=== PATIENT | female | born 1955 | race Caucasian/White ===

== ENCOUNTER 2016-11-28 05:55 | Day surgery (SDC) | payer MEDICAID ==
--- NOTE | 2016-11-27 15:01 | GHP ---
DATE OF ADMISSION: 11/28/2016 PREOPERATIVE DIAGNOSIS: Right shoulder impingement with partial thickness rotator cuff tear. HISTORY OF PRESENT ILLNESS: The patient is a 61-year-old white female who works for [employer] who has had ongoing right shoulder problems and has failed multiple attempts at conservative manage ment including physical therapy and injections. She continues to have difficulty with certain motio ns and night pain, and decision was made to proceed with a decompression and possible cuff repair. PAST MEDICAL HISTORY: Osteopenia. PAST SURGICAL HISTORY: Excision of a uterine fibroid. MEDICATIONS: She does a ProAir inhaler, vitamin C, vitamin D, glucosamine. ALLERGIES: Claritin. SOCIAL HISTORY: Works tube [employer]. Occasional cigarettes, occasional alcohol. REVIEW OF SYSTEMS: No shortness of breath. No chest pain. Otherwise, review of systems is unremar kable. PHYSICAL EXAM: GENERAL: A healthy-appearing 61-year-old female. She is 5 feet 8 inches tall, weig hs 130 pounds. Alert and oriented x3. HEENT: Normocephalic, atraumatic. Extraocular muscles inta ct. NECK: Supple. There is no lymphadenopathy. No JVD. CHEST: Clear to auscultation. CARDIOVA SCULAR: Regular rate and rhythm. ABDOMEN: Soft, nontender, nondistended. RIGHT SHOULDER: There is no obvious deformity. A little bit of elevation at the AC joint with mild tenderness to palpatio n there. Active range of motion of the right shoulder. She has full extension, 170 degrees of forw rosey flexion, 80 degrees of external rotation, internal rotation she can get her thumb to L1. Rotato r cuff strength: Supraspinatus is 4/5 limited more by pain than actual weakness. Infraspinatus 4+ out of 5, subscapularis 4+ out of 5. She does have a positive impingement sign. Mildly positive cr oss-body adduction sign. IMAGING: MRI is reviewed. It shows a partial-thickness tear of the supraspinatus involving less th an 25% of the thickness of the tendon. Glenohumeral articular cartilage is in good shape. There is some mild to moderate AC joint arthritis. Biceps tendon lies normally in the groove. ASSESSMENT: Right shoulder impingement with partial thickness tear. PLAN: Long discussion with the patient. She has really failed to improve with conservative managem ent and is quite limited by the shoulder at this point. I recommend proceeding with an arthroscopic subacromial decompression, distal clavicle excision, possible cuff repair if the tear involves more than 50% of the tendon. Risks and benefits of the surgery including the possibility of being in a shoulder sling and abduction pillow for 3-6 weeks postoperatively were explained to her. She unders tands these risks as well as potential for infection or blood clots. We will proceed with surgery M onday at [facility]. Preoperative paperwork was completed. /[id number]/MODL
[2016-11-28] MEDS ORDERED: LIDOCAINE 1% 5 ML SDV ID PRN (06:24)
[2016-11-28] MEDS ORDERED: LR 1,000 ML IV ONE (06:24)
[2016-11-28] MEDS ORDERED: ceFAZolin 2 GM in D5W 100 ML IV ONE (06:30)
[2016-11-28] MEDS ORDERED: ceFAZolin 2 GM/DEXTROSE 100 ML IV ONE (06:30)
[2016-11-28] MEDS ORDERED: EPINEPHrine 30 MG/30 ML MDV ONE (06:49)
[2016-11-28] MEDS ORDERED: BUPIVACAINE/EPI 0.5% 30 ML SDV ONE (06:49)
[2016-11-28] MEDS ORDERED: LIDO/EPI 1% **for epidural** 30 ML SDV ONE (06:51)
[2016-11-28] MEDS ORDERED: LIDOCAINE 2% 100 MG/5 ML SYR IVP ONE (07:09)
[2016-11-28] MEDS ORDERED: fentaNYL 250 MCG/5 ML INJ ONE (07:10)
[2016-11-28] MEDS ORDERED: PROPOFOL/EMULSION 500 MG/50 ML BOTTLE IV ONE (07:10)
[2016-11-28] MEDS ORDERED: MIDAZOLAM 2 MG/2 ML VIAL ONE (07:13)
[2016-11-28] MEDS ORDERED: fentaNYL 100 MCG/2 ML INJ ONE ×3 (08:49→09:18)
[2016-11-28] MEDS ORDERED: HYDROmorphONE/DILAUDID 1 MG/ML SYR ONE (09:24)
[2016-11-28] MEDS ORDERED: KETOROLAC 30 MG/1 ML SDV ONE (09:24)
[2016-11-28] MEDS ORDERED: HYDROCODONE/APAP 10/325 TAB PO PRN (10:09)
[2016-11-28] MEDS ORDERED: HYDROCODONE/APAP 10/325 TAB ONE ×2 (10:32→15:49)
--- NOTE | 2016-11-28 12:04 | GOP ---
DATE OF OPERATION: SURGEON: Yoel iKm MD ANESTHESIA: General. ANESTHESIOLOGIST: Dr. Shukla PREOPERATIVE DIAGNOSIS: Right shoulder impingement. POSTOPERATIVE DIAGNOSIS: Right shoulder impingement. PROCEDURE PERFORMED: 1. Arthroscopic labral debridement. 2. Glenohumeral chondroplasty. 3. Subacromial decompression. 4. Distal clavicle excision. FINDINGS: ESTIMATED BLOOD LOSS: Minimal. INDICATIONS: The patient is a 61-year-old female with long-standing right shoulder pain that has fa iled multiple attempts at conservative management including injections and physical therapy. Decisi on was made to proceed with a subacromial decompression. DESCRIPTION OF PROCEDURE: After appropriate informed consent was obtained, the patient was taken to the operating room and placed supine on the operating table. Time-out was performed. Patient was identified. Correct site was identified. She received 2 g of Ancef preoperatively. Following beau ction of general endotracheal tube anesthesia by Dr. Shukla, she was positioned in the beach-chair position with all bony prominences well padded. Right upper extremity was prepped and draped in th e usual sterile fashion. I instilled 30 mL of normal saline and 30 mL of 1% lidocaine with epinephr ine. Through the standard posterior portal, I made a small martine incision, introduced the camera thr ough the standard portal and then obtained a standard anterior portal under direct visualization. S he had extensive degenerative fraying and tearing of the labrum both superiorly and anteriorly. Thi s was debrided back with a motorized shaver. There were some grade 2 changes in the central and ant erior aspect of the glenoid that I performed a gentle chondroplasty as well. Looking at the undersu rface of the rotator cuff, there was some mild fraying, but it was intact. Biceps tendon was also i ntact as was the anchor. I repositioned the camera in the subacromial space. There was extensive s ynovitis and bursitis there. I debrided this with both electrocautery and the motorized shaver. As she had a type 2 acromion, using a motorized bur, I removed the anterior third of the acromion and performed a decompression working through the anterior portal. Then I moved superiorly, and I remov ed the distal end of the clavicle. There were moderate AC arthritic changes there. Instruments wer e then withdrawn. Portal incisions were closed with 3-0 nylon. I instilled 20 mL of 5% Marcaine wi th epinephrine into the shoulder. Sterile dressing was applied, and sling was applied. The patient was awakened from anesthesia, taken to recovery room in satisfactory condition. There were no imme diate intraoperative complications. COMPLICATIONS: None. DRAINS: None. /[id number]/MODL
== END 2016-11-28 16:15 | disposition home or self-care (01) ==
LOC: FSGY 05:55
PROVIDERS: ATTEND Orthopaedic Surgery
PROC: 0RBJ4ZZ Excision of Right Shoulder Joint, Percutaneous Endoscopic Approach (ICD-10-PCS; principal; 2016-11-28 07:17)
DX: M25.811 Other specified joint disorders, right shoulder (principal); G89.29 Other chronic pain; Z72.0 Tobacco use
CPT/HCPCS: J0690; J1170; J1885; J2001; J2250; J2704; J3010

== ENCOUNTER → 2017-03-23 | Outpatient (CLI) | payer MEDICAID | LOC: FIMAGING 13:42 | PROVIDERS: ATTEND Internal Medicine | DX: Z12.31 Encounter for screening mammogram for malignant neoplasm of breast (principal); Z80.3 Family history of malignant neoplasm of breast | CPT/HCPCS: G0202 ==

== ENCOUNTER → 2017-08-31 | Outpatient (CLI) | payer MEDICAID ==
[~2017-08-31] MED LIST: IOPAMIDOL (ISOVUE-300) 100 ML BTL ONE
== END ==
LOC: FIMAGING 14:22
PROVIDERS: ATTEND Internal Medicine Gastroenterology
DX: R63.4 Abnormal weight loss (principal); K59.00 Constipation, unspecified; I86.2 Pelvic varices; L05.91 Pilonidal cyst without abscess
CPT/HCPCS: Q9967

== ENCOUNTER → 2017-09-22 | Outpatient (CLI) | payer MEDICAID | LOC: CIMAGING 15:16 | PROVIDERS: ATTEND Obstetrics & Gynecology | DX: N94.89 Other specified conditions associated with female genital organs and menstrual cycle (principal); D25.9 Leiomyoma of uterus, unspecified | CPT/HCPCS: 76856-PO ==

== ENCOUNTER 2018-02-09 16:01 | Emergency (ER) | payer MEDICAID ==
[2018-02-09] MEDS ORDERED: IBUPROFEN 600 MG TAB PO ONE (16:33)
--- NOTE | 2018-02-09 16:37 | EDPHY ---
H & P Smoking Status: Current some day smoker Time Seen by Provider: 02/09/18 16:32 HPI/ROS: CHIEF COMPLAINT: Left foot pain HISTORY OF PRESENT ILLNESS: 62-year-old female presents to the emergency department with pain in her left foot. She states over the last 3 weeks she had intermittent pain which is now become more frequent and more consistent over last several days. She denies any known trauma or injury, however she does do yoga frequently where she holds poses for up to 3 min at a time. She did not initially have pain at rest but more with certain movements of her foot but now even at rest has pain. She denies any other trauma or injury. Denies pain in her ankle. ROS: Denies numbness or tingling in her toes, pain in her left ankle or calf. Denies pain in her knee. Denies low back pain. Denies symptoms in the right lower extremity. (Diamond Medley) Past Medical/Surgical History: Rotator cuff surgery, fibroid surgery (Diamond Medley) Social History: Single and lives in [place]. She is retired. (Diamond Medley) Physical Exam: On examination the patient has very slight swelling noted to the dorsal lateral aspect of her left foot overlying the 3rd, 4th, and 5th metatarsals. There is no ecchymosis. Mild pain with palpation. There is no redness or warmth or signs of infection or cellulitis. She has pain with flexing her left foot and ankle as well as adria in her left foot. Normal sensation to light touch with normal 2 point discrimination. Full range of motion of her left ankle and left calf. Achilles tendon is intact. (Diamond Medley) Constitutional: Initial Vital Signs Temperature (C) 36.9 C 02/09/18 16:17 Heart Rate 88 02/09/18 16:17 Respiratory Rate 16 02/09/18 16:17 Blood Pressure 122/88 H 02/09/18 16:17 O2 Sat (%) 94 02/09/18 16:17 O2 Delivery Mode Room Air Allergies/Adverse Reactions: No Known Allergies Allergy (Unverified 06/18/15 16:40) Home Medications: Medication Instructions Recorded Dulcolax 2 tab DAILY PRN 11/25/16 Miralax 17 gm (*) 1 dose DAILY PRN 11/25/16 oxyCODONE/APAP 5/325 [Percocet 1 - 2 tab PO Q4-6PRN PRN #11 tab 02/09/18 5/325] MDM/Departure - [facility] Imaging: I viewed and interpreted images myself - [facility] Imaging Results: X-rays of the left foot reveal no fractures. This is reviewed by myself and the PAC system. Radiology interpretation pending. (Diamond Medley) Procedures: The patient was placed in a postop shoe and examined post application in good placement with normal EDGE STITCHER. (Diamond Medley) Medications Given: Discontinued Medications Ibuprofen (Motrin) 600 mg PO EDNOW ONE Stop: 02/09/18 16:34 Last Admin: 02/09/18 16:45 Dose: 600 mg ED Course/Re-evaluation: 62-year-old female presents to the emergency department left foot pain. X-rays reveal no obvious fractures. She was placed in a postop shoe to help minimize flexion. She was given orthopedic referral. She requested a prescription for Percocet. Clinically there is no evidence of DVT or cellulitis or gout. (Diamond Medley) The patient was evaluated and managed by the Physician Single Pointed Operator. My co- signature indicates that I have reviewed this chart and I agree with the findings and plan of care as documented. I am the secondary supervising physician. (Adry Granado) - Depart Disposition: Home, Routine, Self-Care Clinical Impression: Tendinitis of left foot Condition: Good Instructions: Oxycodone/Acetaminophen (By mouth), Tendinitis (ED) Additional Instructions: Post op shoe to help minimize flexion. Ibuprofen 600 mg every 8 hr as needed for pain. Percocet for severe pain to help you sleep. Follow up with orthopedic surgeon next week to recheck. Try applying ice or other cool compresses and elevating her foot to help relieve swelling. Activity as tolerated although you should avoid yoga for 1 week. Prescriptions: oxyCODONE/APAP 5/325 [Percocet 5/325] 1 - 2 tab PO Q4-6PRN PRN #11 tab PRN Reason: For Moderate To Severe Pain Referrals: Joy Angel MD [Medical Doctor] - 2-3 days without fail (Orthopedic surgeon on- call)
[2018-02-09 17:46] VITALS: BP 121/93
== END 2018-02-09 17:45 | disposition home or self-care (01) ==
DX: M77.9 Enthesopathy, unspecified (principal); F17.200 Nicotine dependence, unspecified, uncomplicated
CPT/HCPCS: L4386

== ENCOUNTER → 2018-02-16 | Outpatient (CLI) | payer MEDICAID | LOC: FIMAGING 13:53 | PROVIDERS: ATTEND Internal Medicine | DX: Z13.820 Encounter for screening for osteoporosis (principal); M81.0 Age-related osteoporosis without current pathological fracture ==

== ENCOUNTER → 2018-10-11 | Outpatient (CLI) | payer MEDICAID | LOC: FIMAGING 13:57 | PROVIDERS: ATTEND Internal Medicine | DX: Z12.31 Encounter for screening mammogram for malignant neoplasm of breast (principal); M53.3 Sacrococcygeal disorders, not elsewhere classified ==